=== PATIENT | female | born 1985 | race Caucasian/White ===

== ENCOUNTER → 2016-12-15 | Outpatient (CLI) | payer OTHER ==
[2016-12-15 11:16] LABS: CH 34.9; CHCM 37.3; HCT 37.6 % (34.0-46.0); HDW 2.94; HGB 13.3 gm/dL (11.4-16.0); MCH 33.3 pg (25.0-35.0); MCHC 35.3 g/dL (31.0-37.0); MCV 94.3 fL (80.0-100.0); Mean Platelet Volume 7.5; RBC 3.99 m/uL (3.80-5.40); RDW 14.7 % (11.5-15.5); WBC 12.1 k/uL (3.8-10.6)
== END | disposition home or self-care (01) ==
LOC: LABWHC1 09:35
PROVIDERS: ATTEND Obstetrics & Gynecology
DX: Z34.92 Encounter for supervision of normal pregnancy, unspecified, second trimester (principal); Z3A.00 Weeks of gestation of pregnancy not specified
CPT/HCPCS: 36415; 82950; 85027

== ENCOUNTER → 2016-12-20 | Outpatient (CLI) | payer OTHER ==
[2016-12-20 13:06] LABS: Glucose 3 Hour, Gest 66 mg/dL
== END | disposition home or self-care (01) ==
LOC: LABWHC1 08:26
PROVIDERS: ATTEND Obstetrics & Gynecology
DX: O24.419 Gestational diabetes mellitus in pregnancy, unspecified control (principal); Z3A.00 Weeks of gestation of pregnancy not specified
CPT/HCPCS: 36415; 82951; 82952

== ENCOUNTER → 2017-03-05 | Outpatient (CLI) | payer OTHER ==
--- NOTE | 2017-03-05 21:08 | US ---
EXAMINATION TYPE: US OB anatomy transabd third trimester DATE OF EXAM: 03/05/2017 2:49 PM COMPARISON: First trimester ultrasound September 11, 2016. HISTORY: Large For Dates O36.63XO LGA TECHNIQUE: Transabdominal (TA) EXAM MEASUREMENTS: GESTATIONAL AGE / DATING Physician Established: (35 weeks/3 days) EDC: 04/06/2017 Dates by LMP: Unknown Dates by First Scan: (35 weeks/3 days) EDC: 04/06/2017 Dates by Current Scan for: (34 weeks/4 days) EDC: 04/12/2017 SURVEY IUP: Single PLACENTA: Fundal & Posterior PREVIA: No previa RENETTA: cm CERVICAL LENGTH (transabdominal: norm > 3.0cm): 3.2 cm BIOMETRY PRESENTATION: Vertex BPD: 8.6 cm 34 weeks / 5 days HC: 30.2 cm 33 weeks / 4 days AC: 31.0 cm 35 weeks / 0 days FL: 6.7 cm 34 weeks / 4 days ESTIMATED WEIGHT IN GRAMS: 2477 grams ESTIMATED WEIGHT IN LBS/OZS: 5 lbs. 7 oz. WEIGHT PERCENTAGE BASED ON ESTABLISHED DATE: 27 % HC/AC: 0.97 Normal FL/AC: 22 Normal HEART RATE: 139 bpm RHYTHM: Normal ANATOMY SEEN (within normal limits): * Lateral Vent (< 1 cm) 0.3 cm Four Chamber Heart Outflow tracts: LVOT/RVOT Stomach Situs Nose / Lips Diaphragm Kidneys (bilateral) Bladder Cord Insert Three Vessel Cord ANATOMY NOT SEEN: * Cisterna Magna (< 1.1 cm) cm * Nuchal Fold (< 0.6 cm) cm * Cerebellum (varies with age) cm Choroid Plexus (bilateral) Midline Falx Cavus Septi Pellucidi Longitudinal Spine Transverse Spine Arms (bilateral) Legs (bilateral) Single, viable IUP/ Growth parameters wnl/ Anatomy visualized appears wnl Single live intrauterine gestation is redemonstrated. Normal cephalad presentation to fetus is curren tly seen. There is no ultrasound evidence for placenta previa. Amniotic fluid index is 10.5 which is within normal limits. biometry measurements are concordant and felt within normal limits. Detailed anatomical survey is suboptimal due to large gestational age. Structures identified is withi n normal limits during real-time scanning are noted above. Still images saved show also satisfactory visualization of the both structures without abnormality. Structures not successfully visualized as n ormal are noted above on images saved and video clips. IMPRESSION: As above
== END | disposition home or self-care (01) ==
LOC: RADUSWWP 14:18
PROVIDERS: ATTEND Obstetrics & Gynecology
DX: O36.63X0 Maternal care for excessive fetal growth, third trimester, not applicable or unspecified (principal); Z3A.35 35 weeks gestation of pregnancy
CPT/HCPCS: 76811

== ENCOUNTER 2017-04-02 19:30 | Inpatient (IN) | payer OTHER ==
[2017-04-02] MEDS ORDERED: TERBUTALINE 1 MG/ML VIAL SQ PRN (21:07)
[2017-04-02] MEDS ORDERED: OXYTOCIN 10 UNIT/ML 1 ML VIAL IM PRN (21:07)
[2017-04-02] MEDS ORDERED: METHYLERGONOVINE 0.2 MG/ML 1 ML AMP IM PRN (21:07)
[2017-04-02] MEDS ORDERED: LIDOCAINE 1% (PF) 10 MG/ML (30 ML SDV) SQ PRN (21:07)
[2017-04-02] MEDS ORDERED: CARBOPROST TROMETHAMINE 250 MCG/ML 1 ML AMP IM PRN (21:07)
[2017-04-02] MEDS: LACTATED RINGERS 1,000 ML IV SCH ×2 (21:10→21:38)
--- NOTE | 2017-04-02 21:31 | P.HPOB ---
History of Present Illness H&P Date: 04/02/17 Chief Complaint: Labor 31 year old presents at 39 weeks 3 days complaining of contractions. Her cervix changed from 4 to 5-6/90/-2 and she is juan every 4-7 minutes. heart tones are 135-140 with moderate variability and accelerations with some decelerations to the 60's mirroring contractions with good return to baseline. Review of Systems All systems: negative Constitutional: Denies chills, Denies fever Eyes: denies blurred vision, denies pain Ears, nose, mouth and throat: Denies headache, Denies sore throat Cardiovascular: Denies chest pain, Denies shortness of breath Respiratory: Denies cough Gastrointestinal: Denies abdominal pain, Denies diarrhea, Denies nausea, Denies vomiting Genitourinary: Denies dysuria, Denies hematuria Musculoskeletal: Denies myalgias Integumentary: Denies pruritus, Denies rash Neurological: Denies numbness, Denies weakness Psychiatric: Denies anxiety, Denies depression Endocrine: Denies fatigue, Denies weight change Past Medical History Additional Past Medical History / Comment(s): Ob history: First was a vaginal delivery 5#13 oz at 39 weeks. This is her second and she had care with me since 12 weeks. B+, abs neg, Rub Imm, RPR NR, Hep B neg. abnormal 1hr but normal 3hr GTT. GBS neg. History of Any Multi-Drug Resistant Organisms: None Reported Additional Past Surgical History / Comment(s): eye Past Anesthesia/Blood Transfusion Reactions: No Reported Reaction Past Psychological History: No Psychological Hx Reported Smoking Status: Never smoker Medications and Allergies Home Medications Medication Instructions Recorded Confirmed Type RX: Vit#84/Iron/FA#1/Dha 1 tab PO DAILY 04/02/17 04/02/17 History [Prenate Essential Softgel] Allergies Allergy/AdvReac Type Severity Reaction Status Date / Time No Known Allergies Allergy Verified 04/02/17 19:44 Exam Osteopathic Statement: *. No significant issues noted on an osteopathic structural exam other than those noted in the History and Physical/Consult. - Vital Signs Vital signs: Vital Signs Temp Pulse Resp BP 04/02/17 19:45 96.6 F L 80 16 138/75 Intake and Output 04/02/17 04/02/17 04/02/17 06:59 14:59 22:59 Other: Weight 91.172 kg Patient Weight 04/03/17 06:59 Weight 91.172 kg Heart: RRR Lungs: CTAB Abdomen: soft, nontender Extremeties: neg aj's Assessment and Plan (1) Normal labor Status: Acute Plan: 1. admit to [facility] 2. monitor closely 3. expectant management 4. anticipate normal vaginal delivery
[2017-04-02] MEDS ORDERED: fentaNYL (PF) 50 MCG/ML 5 ML AMP ONE (21:32)
[2017-04-02] MEDS ORDERED: BUPIVACAINE (PF) 0.25% 30 ML VIAL ONE (21:32)
[2017-04-02] MEDS ORDERED: SODIUM CHLORIDE 0.9% 100 ML BAG ONE (21:32)
[2017-04-02 21:37] VITALS: BMI 39.2
--- NOTE | 2017-04-02 21:39 | P.MSEPDOC ---
Presenting Problems - Arrival Data Date of Arrival on Unit: 04/02/17 Time of Arrival on Unit: 19:30 Mode of Transport: Wheelchair - Complaint OB-Reason for Admission/Chief Complaint: Possible Onset of Labor Comment: Contractions that started this weekend and have gotten progressively worse since approximately 1400 this afternoon Medical History - Information : 2 Para: 1 Term: 1 : 0 Abortions: Spontaneous or Elective: 0 Number of Living Children: 1 - Gestational Age Expected Date of Delivery: 04/06/17 Gestational Age by JUAN (wks/days): 39 Weeks and 3 Days Review of Systems - Review of Systems Constitutional: No problems Breast: No problems ENT: No problems Cardiovascular: No problems Respiratory: No problems Gastrointestinal: No problems Genitourinary: No problems Musculoskeletal: No problems Neurological: No problems Skin: No problems Vital Signs - Temperature Temperature: 96.6 F Temperature Source: Temporal Artery Scan - Pulse Pulse Oximetery Pulse Rate: 80 Pulse Assessment Method: Pulse Oximetry - Respirations Respiratory Rate: 16 Oxygen Delivery Method: Room Air - Blood Pressure Sitting Blood Pressure: 138/75 Blood Pressure Mean: 96 Blood Pressure Source: Automatic Cuff Medical Screen Scoring (Pre) - Cervical Exam Dilation: 4-7 cm = 2 Effacement: More than 50% = 2 Membranes: Intact - Uterine Contractions Frequency: > or = 36 weeks =2 Duration: > 40 seconds = 2 Intensity: N/A - Maternal Vital Signs Maternal Temperature: N/A Maternal Blood Pressure: N/A Signs of Preeclampsia: N/A Maternal Respirations: N/A - Maternal Trauma Maternal Trauma: N/A - Assessment Baseline FHR: 120 Heart Rate - NICHD Category: Category I (Normal) = 0 NST: Reactive Position: N/A Station: N/A - Total Score Total Score (Pre): 8 - Level of Risk Level of Risk: Medium (6-9) Medical Screen Scoring (Post) - Cervical Exam Dilation: 4-7 cm = 2 Effacement: More than 50% = 2 Membranes: Intact - Uterine Contractions Frequency: > or = 36 weeks =2 Duration: > 40 seconds = 2 Intensity: N/A - Maternal Vital Signs Maternal Temperature: N/A Maternal Blood Pressure: N/A Signs of Preeclampsia: N/A Maternal Respirations: N/A - Maternal Trauma Maternal Trauma: N/A - Assessment Heart Rate - NICHD Category: Category II (Indeterminate) = 3 - Total Score Total Score (Post): 11 - Post Treatment Level of Risk Post Treatment Level of Risk: High (10+) Physician Notification (Post) - Physician Notified Physician Notified Date: 04/02/17 Physician Notified Time: 20:47 Physician/Practitioner Notified:: Dr. Irwin - Notification Comment Comment: Admit patient for labor Disposition - Disposition OB Disposition: Admit, LDRP Suite Transferred to:: Suite 1 I agree with the RN Medical Screening Exam: Yes Risk & Benefit of care provided described in d/c instruction: Yes Diagnosis: ENCOUNTER FOR FULL-TERM UNCOMPLICATED DELIVERY
[2017-04-02 21:40] LABS: CH 36.5; CHCM 37.9; HCT 41.1 % (34.0-46.0); HDW 2.98; HGB 14.3 gm/dL (11.4-16.0); Hyperchromasia Slight; MCH 33.6 pg (25.0-35.0); MCHC 34.7 g/dL (31.0-37.0); MCV 96.9 fL (80.0-100.0); Mean Platelet Volume 8.4; RBC 4.24 m/uL (3.80-5.40); RDW 14.9 % (11.5-15.5); WBC 14.6 k/uL (3.8-10.6); WBC (Perox) 15.01
[2017-04-02] MEDS ORDERED: BUPIVACAINE (PF) 0.25% 25 ML, fentaNYL (PF) 200 MCG in SODIUM CHLORIDE 0.9% 71 ML EPIDURAL ONE (21:52)
[2017-04-02 21:56] LABS: Add Differential Manual Differential
[2017-04-02 21:58] LABS: Nucleated Red Blood Cells 0 /100 WBC (0-0); Total Cells Counted 100
[2017-04-02 21:59] LABS: Large Platelets Present; Manual Review Performed; Polychromasia Present
[2017-04-02] MEDS ORDERED: diphenhydrAMINE 50 MG CAP PO PRN (22:32)
[2017-04-02] MEDS ORDERED: ZOLPIDEM 5 MG TAB PO PRN (22:32)
[2017-04-02] MEDS ORDERED: WITCH HAZEL 1 EACH MED..PAD TOPICAL PRN (22:32)
[2017-04-02] MEDS ORDERED: ACETAMINOPHEN TAB 325 MG TAB PO PRN (22:32)
[2017-04-02] MEDS ORDERED: SIMETHICONE 80 MG CHEWABLE PO PRN (22:32)
[2017-04-02] MEDS ORDERED: diphenhydrAMINE 25 MG CAP PO PRN (22:32)
[2017-04-02] MEDS ORDERED: HYDROCORTISONE 2.5% RECTAL CREAM 30 GM TUBE RECTAL PRN (22:32)
[2017-04-02] MEDS ORDERED: BENZOCAINE/MENTHOL SPRAY 1 GM/SPRAY AEROSOL TOPICAL PRN (22:32)
[2017-04-02] MEDS ORDERED: LANOLIN CREAM 5 GM TUBE TOPICAL PRN (22:32)
[2017-04-02] MEDS ORDERED: Acetaminophen-Codeine 300-30mg TAB PO PRN (22:32)
[2017-04-02] MEDS ORDERED: diphenhydrAMINE 50 MG/ML 1 ML VIAL IVP PRN ×2 (22:32)
--- NOTE | 2017-04-02 22:37 | P.PROBDLV ---
Vaginal Delivery Note - . Vaginal Delivery Note: A 1-year-old presented at 39 weeks and 3 days in active labor. Her cervix changed in triage from 4 cm to 5-6 cm, 90% effaced, and -2 station. She is juan every 4-7 minutes. The heart tones were 135-140 with moderate variability and reactive but some decelerations mirroring contractions going to 60 bpm with good return to baseline. Amniotomy was performed at 2115 and clear fluid noted and FECG placed. She did get an epidural bolus still feeling pressure. She was complete at 2213, and delivered a viable female infant over intact perineum under epidural anesthesia at 2216. Head delivered OA, anterior shoulder which was the left shoulder was delivered gentle downward traction followed by posterior shoulder and rest of body. Nose and mouth bulb suctioned , cord clamped and cut, placed mother's abdomen. Apgars 8, 9, weight 6 lbs. 11 oz. Placenta delivered spontaneously, intact with three-vessel cord at 20-21. Pitocin was added to the IV. Vagina, cervix, and perineum were inspected. Second-degree midline laceration was repaired with 2-0, and 3-0 Vicryl. Estimated blood loss 150 mL. Mother and baby in stable condition.
[2017-04-02] MEDS ORDERED: OXYTOCIN 20 UNITS/1000 ML NS 1,000 ML IV SCH (22:45)
[2017-04-02] MEDS: IBUPROFEN 600 MG TAB PO PRN (22:51)
[2017-04-03] MEDS: Acetaminophen-Codeine 300-30mg TAB PO PRN ×2 (07:25→17:17)
[2017-04-03] MEDS: SENNOSIDES-DOCUSATE SODIUM 1 EACH TAB PO SCH ×2 (07:25→20:04)
[2017-04-03] MEDS: IBUPROFEN 600 MG TAB PO PRN ×2 (12:24→22:41)
[2017-04-03 12:54] VITALS: RESP 16
--- NOTE | 2017-04-04 08:03 | P.MSEPDOC ---
Presenting Problems - Arrival Data Date of Arrival on Unit: 04/02/17 Time of Arrival on Unit: 19:30 Mode of Transport: Wheelchair - Complaint OB-Reason for Admission/Chief Complaint: Possible Onset of Labor Comment: Contractions that started this weekend and have gotten progressively worse since approximately 1400 this afternoon Medical History - Information : 2 Para: 1 Term: 1 : 0 Abortions: Spontaneous or Elective: 0 Number of Living Children: 1 - Gestational Age Expected Date of Delivery: 04/06/17 Gestational Age by JUAN (wks/days): 39 Weeks and 5 Days Review of Systems - Review of Systems Constitutional: No problems Breast: No problems ENT: No problems Cardiovascular: No problems Respiratory: No problems Gastrointestinal: No problems Genitourinary: No problems Musculoskeletal: No problems Neurological: No problems Skin: No problems Vital Signs - Temperature Temperature: 98.1 F Temperature Source: Oral - Pulse Pulse Oximetery Pulse Rate: 78 Pulse Assessment Method: Automatic Cuff - Respirations Respiratory Rate: 16 Oxygen Delivery Method: Room Air - Blood Pressure Sitting Blood Pressure: 127/75 Blood Pressure Mean: 92 Blood Pressure Source: Automatic Cuff Medical Screen Scoring (Pre) - Cervical Exam Dilation: 4-7 cm = 2 Effacement: More than 50% = 2 Membranes: Intact - Uterine Contractions Frequency: > or = 36 weeks =2 Duration: > 40 seconds = 2 Intensity: N/A - Maternal Vital Signs Maternal Temperature: N/A Maternal Blood Pressure: N/A Signs of Preeclampsia: N/A Maternal Respirations: N/A - Maternal Trauma Maternal Trauma: N/A - Assessment Baseline FHR: 120 Heart Rate - NICHD Category: Category I (Normal) = 0 NST: Reactive Position: N/A Station: N/A - Total Score Total Score (Pre): 8 - Level of Risk Level of Risk: Medium (6-9) Medical Screen Scoring (Post) - Cervical Exam Dilation: 4-7 cm = 2 Effacement: More than 50% = 2 Membranes: Intact - Uterine Contractions Frequency: > or = 36 weeks =2 Duration: > 40 seconds = 2 Intensity: N/A - Maternal Vital Signs Maternal Temperature: N/A Maternal Blood Pressure: N/A Signs of Preeclampsia: N/A Maternal Respirations: N/A - Maternal Trauma Maternal Trauma: N/A - Assessment Heart Rate - NICHD Category: Category II (Indeterminate) = 3 - Total Score Total Score (Post): 11 - Post Treatment Level of Risk Post Treatment Level of Risk: High (10+) Physician Notification (Post) - Physician Notified Physician Notified Date: 04/02/17 Physician Notified Time: 20:47 Physician/Practitioner Notified:: Dr. Irwin - Notification Comment Comment: Admit patient for labor Disposition - Disposition OB Disposition: Admit, LDRP Suite Transferred to:: Suite 1 I agree with the RN Medical Screening Exam: Yes Risk & Benefit of care provided described in d/c instruction: Yes Diagnosis: 39 WEEKS GESTATION OF
--- NOTE | 2017-04-04 08:05 | P.PNOBGVD ---
Subjective - Subjective Principal diagnosis: S/P NVD PPD #1 Interval history: PAtient seen and examined. Denies N/V, F/C, CP, SOB, calf pain Patient reports: Reports appetite normal, Reports voiding normally, Reports pain well controlled, Reports ambulating normally [place]: doing well Objective - Latest Vital Signs Latest vital signs: Vital Signs Temp Pulse Resp BP Pulse Ox 04/04/17 08:03 98.1 F 78 16 127/75 04/03/17 23:34 98.1 F 78 16 127/75 04/03/17 16:00 97.7 F 77 16 137/84 99 04/03/17 12:00 98.3 F 88 16 156/73 97 Intake and Output 04/03/17 04/04/17 04/04/17 22:59 06:59 14:59 Other: # Voids 1 1 # Bowel Movements 0 - Exam Lungs: bilateral: normal Chest: Normal S1, Normal S2 Extremities: Present: normal Abdomen: Present: normal appearance, soft Uterus: Present: normal, firm Assessment and Plan (1) Normal labor Current Visit: Yes Status: Resolved Code(s): O80 - ENCOUNTER FOR FULL-TERM UNCOMPLICATED DELIVERY; Z37.9 - OUTCOME OF DELIVERY, UNSPECIFIED SNOMED Code(s ): 97553113 (2) Normal vaginal delivery Narrative/Plan: 1. cont pp care Current Visit: Yes Status: Acute Code(s): O80 - ENCOUNTER FOR FULL-TERM UNCOMPLICATED DELIVERY SNOMED Code(s): 66094866
--- NOTE | 2017-04-04 08:07 | P.DS ---
Providers Date of admission: 04/02/17 20:47 Expected date of discharge: 04/04/17 Attending physician: Gina Irwin Primary care physician: Gina Irwin - Discharge Diagnosis(es) (1) Normal labor Current Visit: Yes Status: Resolved (2) Normal vaginal delivery Current Visit: Yes Status: Acute Hospital Course: Patient presented in active labor. She underwent a normal vaginal delivery and had an uncomplicated post course. She will be discharged home PPD #2 in stable condition to follow up with me in 6 weeks. Plan - Discharge Summary New Discharge Prescriptions: Docusate [Colace] 100 mg PO BID #60 capsule Ibuprofen [Motrin] 600 mg PO Q6HR PRN #30 tab PRN Reason: Mild Pain Or Fever >= 100.5 Discharge Medication List Vit 84/Iron/FA 1/Dha [Prenate Essential Softgel] 1 tab PO DAILY [History] Docusate [Colace] 100 mg PO BID #60 capsule 04/04/17 [Rx] Ibuprofen [Motrin] 600 mg PO Q6HR PRN #30 tab 04/04/17 [Rx] Follow up Appointment(s)/Referral(s): Gina Irwin DO [Primary Care Provider] - 6 Weeks Discharge Disposition: HOME SELF-CARE
[2017-04-04] MEDS: IBUPROFEN 600 MG TAB PO PRN (08:16)
[2017-04-04] MEDS: SENNOSIDES-DOCUSATE SODIUM 1 EACH TAB PO SCH (08:17)
[2017-04-04 08:24] VITALS: BP 142/90; PULSE 77; TEMP 97.9
== END 2017-04-04 10:54 | disposition home or self-care (01) | DRG 775 ==
LOC: FBPOP 19:30 → 4FBP 20:47
PROVIDERS: ADMIT Obstetrics & Gynecology; ATTEND Obstetrics & Gynecology
PROC: 00HU33Z Insertion of Infusion Device into Spinal Canal, Percutaneous Approach (ICD-10-PCS; principal; 2017-04-02)
PROC: 10E0XZZ Delivery of Products of Conception, External Approach (ICD-10-PCS; principal; 2017-04-02)
PROC: 3E0R3CZ (ICD-10-PCS; principal; 2017-04-02)
PROC: 0KQM0ZZ Repair Perineum Muscle, Open Approach (ICD-10-PCS; principal; 2017-04-02)
DX: O70.1 Second degree perineal laceration during delivery (principal); Z37.0 Single live birth; Z3A.39 39 weeks gestation of pregnancy
CPT/HCPCS: 59025; 85025; 88307; 99213